=== PATIENT | male | born 1975 | race African-American/Black ===

== ENCOUNTER 2016-08-30 15:00 | Emergency (ER) | payer SELFPAY ==
[2016-08-30 15:07] VITALS: BP 135/83; BMI 28.6
== END 2016-08-30 16:27 | disposition home or self-care (01) ==
LOC: ER 15:20
DX: R41.0 Disorientation, unspecified (principal)
CPT/HCPCS: 99281

== ENCOUNTER 2016-09-26 17:37 | Emergency (ER) | payer SELFPAY ==
[2016-09-26 17:50] VITALS: BP 142/78; BMI 28.3
--- NOTE | 2016-09-26 19:33 | RAD ---
HISTORY: Sharp pain in left elbow with numbness in fingers. Study: Three-view left elbow. Comparison: None. Findings: There is no destructive bony lesion. No acute cortical disruption or dislocation is identified. No significant joint space effusion can be seen. The soft tissues are within limits. There is no radio paque foreign body. The radial head is unremarkable in its appearance. IMPRESSION: Negative exam of the left elbow. Reported By:
--- NOTE | 2016-09-26 20:26 | DR.GENAD ---
HPI - PCP Primary Care Physician: NFD - Complaint/Symptoms Chief Complaint Doctors Comments: History as stated. I agree with statement. Patient denies any truama. Chief Complaint:: Pt states he woke up with sharp pain starting in left elbow sending dull pain through forearm. C/o numbness/tingling in first three fingers on left hand. Rates pain at a 0-1 at this time but states pain comes and goes. - Source History Provided: Patient - Mode of Arrival Mode of Arrival: Ambulatory - Timing Onset of Chief Complaint: 09/22/16 PMH - PMH Past Medical History: No Past Medical History: Depression Past Surgical History: No - Family History History of Family Medical Conditions: Yes Family Medical History: Diabetes Mellitus, Hypertension - Social History Does patient currently use any type of tobacco product: Yes Have you used tobacco products in the last 12 months: Yes Type of Tobacco Use: Cigarettes Alcohol Use: Rarely Do you use any recreational Drugs:: No Lives With: Spouse Lives Where: Home - infectious screening In the last 2 months have you had wt loss of >10#?: NO Have you had fever, night sweats or hemotysis?: No Have you traveled outside the country in the last 6 months?: No Isolation: Standard ROS - Review of Systems Eyes: No Symptoms Reported ENTM: No Symptoms Reported Respiratoy: No Symptoms Reported Cardiovascular: No Symptoms Reported Gastrointestinal/Abdominal: No Symptoms Reported Genitourinary: No Symptoms Reported Neurological: No Symptoms Reported Musculoskeletal: No Symptoms Reported Integumentary: No Symptoms Reported Hematologic/Lymphatic: No Symptoms Reported Endocrine: No Symptoms Reported Psychiatric: No Symptoms Reported All Other Systems: Reviewed and Negative PE - Vital Signs Vitals: Temperature 97.5 F Pulse Rate 78 Respiratory Rate 20 Blood Pressure 142/78 O2 Sat by Pulse Oximetry 99 - General Limitations: No Limitations General Appearance: Alert, In No Apparent Distress, Appears Intoxicated - Head Head Exam: Normal Inspection, Atraumatic - Eyes Eye exam: Normal Appearance, PERRL, EOMI - ENT ENT Exam: Normal Exam External Ear Exam: Normal External Inspection TM/Canal Exam: Bilateral Normal Nose Exam: Normal Nose Exam Mouth Exam: Normal Inspection Throat Exam: Normal Inspection - Neck Neck Exam: Normal Inspection, Full ROM - Chest Chest Inspection: Normal Inspection - Respiratory Respiratory Exam: Normal Lung Sounds Bilat Respiratory Exam: Bilateral Clear to Auscultation - Cardiovascular Cardiovascular Exam: Regular Rate, Normal Rhythm - Abdominal Exam Abdominal Exam: Normal Inspection, Normal Bowel Sounds Abdominal Tenderness: negative: RUQ, RLQ, LUQ, LLQ, Epigastrium, Suprapubic, Diffuse, Mild, Moderate, Severe, Other - Extremities Extremities Exam: Normal Inspection, Full ROM, Normal Capillary Refill. negative: Tenderness, Edema, Joint Swelling - Back Back Exam: Normal Inspection - Neurologic Neurological Exam: Alert, Oriented X3, CN II-XII Intact - Psychiatric Psychiatric Exam: Normal Affect - Skin Skin Exam: Warm, Dry, Intact ROR - XRAY XRAY Interpreted by: Radiologist (Elbow: There is no destructive bony lesion. No acute cortical disruption or dislocation is identified. No significant joint space effusion can be seen. The soft tissues are within limits. There no radiopague foreign body. The radial head is unremarkable in its appearnace. Impression: Negative exam of the left elbow.) - Diagnosis Discharge Problem: Elbow disorder - Discharge Plan Condition: Stable - Follow ups/Referrals Follow ups/Referrals: NFD,None [Primary Care Provider] - 3 days - Instructions
== END 2016-09-26 20:32 | disposition home or self-care (01) ==
LOC: ER 17:52
DX: M24.222 Disorder of ligament, left elbow (principal)
CPT/HCPCS: 73070; 99282

== ENCOUNTER 2016-10-17 09:02 | Emergency (ER) | payer SELFPAY ==
[2016-10-17 09:11] VITALS: BP 111/73; BMI 28.3
[2016-10-17] MEDS ORDERED: NORFLEX INJ IM ONE (10:09)
[2016-10-17] MEDS ORDERED: TORADOL 60 MG VIAL IM ONE (10:09)
[2016-10-17] MEDS ORDERED: NORFLEX INJ ONE (10:30)
[2016-10-17] MEDS ORDERED: TORADOL 60 MG VIAL ONE (10:30)
--- NOTE | 2016-10-17 10:51 | DR.GENAD ---
HPI - PCP Primary Care Physician: NAOMIE - HPI Comment HPI Comment: HISTORY TMJ. TODAY, LEFT JAW LOCKED AND TRISMUS PRESENT. NO TRAUMA. NO FEVER. - Complaint/Symptoms Chief Complaint Doctors Comments: LOCK JAW. Chief Complaint:: Left side of jaw "locked up" - Nurses notes reviewed Nurses Notes Review: Yes - Source History Provided: Patient - Mode of Arrival Mode of Arrival: Ambulatory - Timing Onset of Chief Complaint: 10/17/16 Came on: Suddenly - Duration Duration: Constant Duration: Hours - Severity Severity: Moderate PMH - PMH Past Medical History: No Past Medical History: Depression Past Surgical History: No - Family History History of Family Medical Conditions: No Family Medical History: Diabetes Mellitus, Hypertension - Social History Does patient currently use any type of tobacco product: No Have you used tobacco products in the last 12 months: No Does any household member use tobacco: No Alcohol Use: Occasionally Do you use any recreational Drugs:: No Lives With: Alone Lives Where: Home - infectious screening In the last 2 months have you had wt loss of >10#?: NO Have you had fever, night sweats or hemotysis?: No Have you traveled outside the country in the last 6 months?: No Isolation: Standard ROS - Review of Systems Constitutional: No Symptoms Reported Eyes: No Symptoms Reported ENTM: Mouth Pain (LEFT JAW PAIN) Respiratoy: No Symptoms Reported Cardiovascular: No Symptoms Reported Gastrointestinal/Abdominal: No Symptoms Reported Genitourinary: No Symptoms Reported Neurological: No Symptoms Reported Musculoskeletal: No Symptoms Reported Integumentary: No Symptoms Reported Hematologic/Lymphatic: No Symptoms Reported Endocrine: No Symptoms Reported All Other Systems: Reviewed and Negative PE - Vital Signs Vitals: Temperature 98.7 F Pulse Rate 72 Respiratory Rate 14 Blood Pressure 111/73 O2 Sat by Pulse Oximetry 98 - General Limitations: No Limitations General Appearance: Alert - Head Head Exam: Other (TENDERNESS LT TMJ.) - Eyes Eye exam: Normal Appearance - ENT ENT Exam: Normal External Ear Exam, Other (TRISMUS PRESENT.) External Ear Exam: Normal External Inspection TM/Canal Exam: Bilateral Normal Nose Exam: Normal Nose Exam Mouth Exam: Normal Inspection Throat Exam: Normal Inspection - Neck Neck Exam: Trachea Midline - Chest Chest Inspection: Symmetric Chest Wall Rise - Respiratory Respiratory Exam: Normal Lung Sounds Bilat Respiratory Exam: Bilateral Clear to Auscultation - Cardiovascular Cardiovascular Exam: Regular Rate, Normal Rhythm, Normal Heart Sounds - Abdominal Exam Abdominal Exam: Normal Bowel Sounds, Soft. negative: Tenderness - Extremities Extremities Exam: Normal Inspection - Back Back Exam: Normal Inspection - Neurologic Neurological Exam: Alert, Oriented X3 - Psychiatric Psychiatric Exam: Normal Affect, Normal Mood - Skin Skin Exam: Normal Color MDM - Additional Information Additional Information Obtained From: Family - Differential Diagnosis Differential Diagnosis: ARTHRITIS, SINUSITIS, DENTAL PAIN Course - Treatment Treatment: SEE ORDERS. IM MED PAIN DECREASING. - Education/Counseling Education/Counseling: Patient, Education Educated On: Treatment, Diagnosis, Needs for Follow Up ROR - XRAY XRAY Interpreted by: Radiologist XRAY Findings: REPORT DISCUSS WITH PATIENT. - Diagnosis Discharge Problem: TMJ (temporomandibular joint disorder) - Discharge Plan Disposition: 01 HOME, SELF-CARE Condition: Stable Prescriptions: Amoxicillin [Amoxil 875 mg] 875 mg PO BID #20 tab Ibuprofen [Motrin Tab 800 mg] 800 mg PO Q8H PRN #20 tab PRN Reason: Pain/Inflammation Tramadol HCl 50 mg PO Q8H PRN #15 tab PRN Reason: Pain - Follow ups/Referrals Follow ups/Referrals: NFD,None [Primary Care Provider] - 2 days - Instructions Instructions: Temporomandibular Joint Syndrome, Dental Pain Additional Instructions: RETURN TO ED IF WORSE.
--- NOTE | 2016-10-17 10:58 | CT ---
CT face without contrast Indication: Left-sided jaw pain. Comparison: None Technique: CT images of the face were obtained without contrast. Automatic exposure control was util ized. Findings: The visualized lower brain is grossly normal. The major paranasal sinuses, mastoid air may ls, and middle ears are clear. There is an approximately 2.0 x 1.3 cm periapical lucency about the root of the left maxillary centr al incisor, with dehiscence of the alveolar bone anteriorly, although no discrete soft tissue fluid collection is identified. No mandibular lesion is identified. There is no acute fracture or subluxat ion. The temporomandibular joint spaces are normally maintained. Impression: 1. 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 Correlation recommended. No evidence for abscess. 2. Unremarkable appearance of the temporomandibular joints. Reported By:
== END 2016-10-17 11:13 | disposition home or self-care (01) ==
LOC: ER 09:02
DX: M26.602 Left temporomandibular joint disorder, unspecified (principal)
CPT/HCPCS: 70486; 96372; 99283; J1885; J2360